=== PATIENT | male | born 2005 | race Caucasian/White ===

== ENCOUNTER 2023-09-30 20:33 | Emergency (ER) | payer BC ==
[~2023-09-30] VITALS: Ht 182.9 cm; Wt 86.2 kg
[2023-09-30 20:57] VITALS: BP 123/77
== END 2023-09-30 21:46 | disposition home or self-care (01) ==
LOC: ER 20:33
DX: S20.212A Contusion of left front wall of thorax, initial encounter (principal); W55.22XA Struck by cow, initial encounter
CPT/HCPCS: 71101; 99283-25